=== PATIENT | male | born 1985 | race Caucasian/White ===

== ENCOUNTER → 2020-05-21 11:25 | Outpatient (BNVA) | payer OTHER, SELFPAY | PROVIDERS: Referring Provider Nurse Practitioner; Visit Provider Specialist | DX: S82.891A Other fracture of right lower leg, initial encounter for closed fracture (principal) | CPT/HCPCS: 73610 ==

== ENCOUNTER → 2020-06-25 09:29 | Outpatient (BNVA) | payer OTHER, SELFPAY | PROVIDERS: Visit Provider Specialist | DX: S82.831A Other fracture of upper and lower end of right fibula, initial encounter for closed fracture (principal); X58.XXXA Exposure to other specified factors, initial encounter | CPT/HCPCS: 73610 ==

== ENCOUNTER 2020-06-25 13:28 | Outpatient (CLI) | payer OTHER, SELFPAY | END 2020-06-25 13:29 | disposition home or self-care (01) | LOC: SPT 13:28 | PROVIDERS: Visit Provider Specialist | DX: Z47.89 Encounter for other orthopedic aftercare (principal); S82.831D Other fracture of upper and lower end of right fibula, subsequent encounter for closed fracture with routine healing; X58.XXXD Exposure to other specified factors, subsequent encounter | CPT/HCPCS: 97760; L1902 ==

== ENCOUNTER 2021-06-14 08:43 | Outpatient (CLI) | payer BC, SELFPAY ==
--- NOTE | 2021-06-14 | CT_ITS ---
WS: [id number] CT ABDOMEN AND PELVIS WITH CONTRAST HISTORY: GALLBLADDER POLYP TECHNIQUE: Imaging performed of the abdomen and pelvis with IV contrast. Single phase imaging of the abdomen. Coronal and sagittal reformats are submitted. All CT scans at [facility] use at [address] one of these dose optimization techniques: automated exposure control; mA and/or kV adjustment per patient size (includes targeted exams where dose is matched to clinical indication); or iterative re construction. IV CONTRAST: Omnipaque 300; 95 mL IV. Oral contrast: Yes. DLP: 1098.99 mGycm COMPARISON: 07/03/2019 Lower thorax: Lung bases are clear. Heart is normal size. No hiatal hernia. Liver/biliary system: Normal size with no intrahepatic dilatation. Gallbladder: Normal. No gallstones or wall thickening. No pericholecystic fluid. Pancreas: Normal size pancreas and pancreatic duct. No adjacent inflammation. Spleen: Normal size spleen. No mass or infarct. Adrenal glands: Normal. Right kidney: 8 mm exophytic low-attenuation nodule from the superior pole similar to the prior study of 07/03/2019. There is an additional smaller low-attenuation nodule from the posterior mid kidney wh ich is unchanged. Left kidney: Normal. Aorta: Normal. Lymphadenopathy: None. Free fluid: None. GI tract: Normal appendix. No obstruction or diverticular disease. Abdominal wall: Seen best on the sagittal reformats is a fat-containing umbilical hernia. Pelvis: No free fluid or adenopathy within the pelvis. Bones: Unremarkable. CT/CT abdomen pelvis w con* [id number] IMPRESSION: 1. No acute abdominal or pelvic abnormalities. 2. No renal obstruction. 3. Tiny umbilical hernia contains fat only. Hernia is best seen on the sagitta l reformats.
[2021-06-14] MEDS: iohexol 300 mg/mL 50 mL Btl PO (09:25)
[2021-06-14] MEDS: iohexol 300 mg/mL 100 mL Btl IV (10:30)
== END 2021-06-14 08:44 | disposition home or self-care (01) ==
PROVIDERS: PCP Family Medicine; Visit Provider Family Medicine
DX: K82.4 Cholesterolosis of gallbladder (principal); K42.9 Umbilical hernia without obstruction or gangrene
CPT/HCPCS: 74177; Q9967

== ENCOUNTER 2021-06-22 06:55 | Outpatient (CLI) | payer BC, SELFPAY ==
--- NOTE | 2021-06-22 07:07 | NM_ITS ---
WS: [id number] NUCLEAR MEDICINE HIDA SCAN WITH GALLBLADDER EJECTION FRACTION HISTORY: GALLBLADDER POLYP COMPARISON: Gallbladder ultrasound 05/13/2021 TECHNIQUE: The patient was intravenously injected with 4.4 mCi of TC99m Mebrofenin. Immediate imaging over the right upper quadrant was followed by 5 minute image and additional images for a total of 60 minutes. Normal uptake of radiotracer throughout the liver. Activity identified in the gallbladder at 10 minutes and well distended by 60 minutes. Activity in the proximal small bowel was seen by 30 minutes. Good washout of the radiotracer from the liver by 60 minutes. The patient then drank 8 ounces of Ensure Plus. Ejection fraction at 60 minutes was 86%. Normal GB ej ection fraction is 35-75%. Post fatty meal symptoms: None. NM/NM hepatobiliary w phar* [id number] IMPRESSION: 1. Normal HIDA scan. 2. Normal gallbladder ejection fraction.
== END 2021-06-22 06:56 | disposition home or self-care (01) ==
LOC: NM 06:57
PROVIDERS: PCP Family Medicine; Visit Provider Family Medicine
DX: K82.4 Cholesterolosis of gallbladder (principal)
CPT/HCPCS: 78227; A9537

== ENCOUNTER 2022-02-20 17:03 | Emergency (ER) | payer BC, SELFPAY ==
[2022-02-20] VITALS (9 sets, daily range): BP systolic 99–164; BP diastolic 62–109; PULSE 63–101; RESP 16–24; TEMP 37.1; O2SAT 93–98; BMI 38.0
--- NOTE | 2022-02-20 17:24 | ED_ITS ---
Documented by User: ALDO Pollock 02/20/22 21:23 HPI - Abdominal Pain General: Chief Complaint: Abdominal Pain Stated Complaint: Severe abd pain Time Seen by Provider: 02/20/22 17:07 Source: patient Mode of arrival: ambulatory Limitations: no limitations History of Present Illness: Patient is a 36-year-old male who presents to ED today along with his for complaints of severe abdominal pain and nausea and vomiting. states patient has had intermittent similar episodes over the past year or so. He has been worked up for gallbladder issues and reportedly had a normal gallbladder ultrasound as well as a HIDA scan. They think at some point he also had a CT scan which was normal. He states he has cut out all greasy and spicy foods and was started on a PPI. states this has seemed to cut down on the frequency of episodes and therefore he has delayed further treatment for evaluation. Patient states around 3 AM this morning he awoke with significant abdominal pains that have continued and worsened throughout the day. He has had a few episodes of nonbloody emesis. He has not noticed any changes in bowel movements today but states on previous episodes he often will get accompanying nonbloody diarrhea. No fevers. MD elicited complaint: abdominal pain and other (N/V) Onset (ago): hour(s) (12 hours ago) Pain Consistency: constant Location: Epigastric, Periumbilical, LUQ and RUQ Severity: severe Pain scale (0-10): 10 Radiation: none Migration to: no migration Exacerbating factors: eating Associated Symptoms: Reports diarrhea, nausea and vomiting; Denies chills, dysuria, fever(s), hematochezia, hematemesis and melena Review of Systems Const: Denies: fever(s), chills, body aches, fatigue or malaise Card: Denies: chest pain Resp: Denies: dyspnea GI: Reports: abdominal pain, nausea, vomiting and diarrhea; Denies: hematemesis, hematochezia or melena : Denies: flank pain, dysuria or genital pain Musc: Denies: neck pain, back pain, extremity pain or joint pain Skin/Breast: Denies: rash Neuro: Denies: headache(s), numbness in extremities, weakness in extremities or sensory changes PFS ED PFSH: Social History Smoking and tobacco status: never smoked Alcohol intake: never Physical Exam Const: COMMON NORMALS: patient oriented x3, no limitations and alert GENERAL APPEARANCE: cooperative and in distress (visibly uncomfortable secondary to pain) NUTRITIONAL APPEARANCE: obese ORIENTATION/CONSCIOUSNESS: Yes awake, Yes oriented to person, Yes oriented to place and Yes oriented to time HENMT: COMMON NORMALS: normocephalic and atraumatic HEAD & SCALP: normal to inspection, normocephalic and atraumatic Chest: COMMONS NORMALS: normal inspection of the chest Resp: COMMON NORMALS: normal respiratory effort and clear to auscultation bilaterally AUSCULTATION: clear to auscultation bilaterally Cardio: COMMON NORMALS: regular rate and regular rhythm RATE: regular rate RHYTHM: regular rhythm GI: COMMON NORMALS: Normal to inspection, nondistended, normoactive bowel sounds present, Soft to palpation and no masses INSPECTION: Yes normal to inspection PALPATION: Yes Soft to palpation and Yes Tenderness to palpation present (GI) (throughout upper abdomen; periumbilical) : COMMON NORMALS: Yes no CVA tenderness BLADDER/KIDNEY EXAM: Yes no CVA tenderness Back/Pelvis: COMMON NORMALS: no CVA tenderness, thoracic and lumbar spine normal to inspection, no thoracic nor lumbar tenderness and thoraco-lumbar ROM normal Extremity: COMMON NORMALS: normal to inspection GENERAL: Yes normal exam except as noted Neuro: COOPER COMA SCALE: document GCS findings Cooper coma scale eye opening: Spontaneous Cooper coma scale verbal response: Orientated Cooper coma scale motor response: Obey commands Clarks coma scale total score: 15 COMMON NORMALS: patient oriented x3, moves all extremities, no focal motor deficits and no sensory deficits noted SENSORIUM/ORIENTATION: Yes alert, Yes oriented to person, Yes oriented to place and Yes oriented to time Skin: COMMON NORMALS: no rashes or lesions noted GENERAL SKIN EXAM: no rashes or lesions noted Course Vital Signs: Vital signs: Vital Signs Temperature 98.7 F 02/20/22 17:08 Pulse Rate 98 02/20/22 21:00 Respiratory Rate 20 H 02/20/22 21:00 Blood Pressure 126/68 02/20/22 21:00 Pulse Oximetry 95 02/20/22 21:00 MDM - Abdominal Pain Medical Decision Making Patient's pain has improved with IV pain medications here. He is currently rating pain at 2/10. He has not had any episodes of vomiting. His blood work shows LFT elevations with a bilirubin of 3.0, AST/ALT at 274/255, and an alk phos of 149. He has a normal lipase. His CT scan is essentially normal. They did comment on the presence of cholelithiasis. There was no mention of ductal dilation. He had some submucosal fat deposition in his colon consistent with chronic inflammation. US of his gallbladder stated there were no gallstones, wall thickening or pericholecystic fluid. Biliary ducts were suboptimally visualized. Patient has a normal white count. He is not tachycardic or febrile. No hypotension. No clinical jaundice. I spoke to Dr. Velazco who recommended/agreed we have a CMP repeated in 24-48 hours and have patient follow up with general surgery as soon as possible for further evaluation. Patient and his were given strict return to ED precautions. Lab Data : 02/20/22 17:40 02/20/22 17:40 Labs/Radiology: Radiology Impressions Abdomen/Pelvis CT 02/20/22 17:24 IMPRESSION: 1. Limited noncontrast examination without CT evidence of acute intra-abdominal or pelvic pathology. 2. Additional findings, as above. Gallbladder Ultrasound 02/20/22 18:22 IMPRESSION: No acute sonographic findings. Laboratory Results WBC 6.2 10^3/uL (4.0-10.0) 02/20/22 17:40 RBC 5.74 10^6/uL (4.1-5.3) H 02/20/22 17:40 Hgb 17.2 g/dL (11.7-16.6) H 02/20/22 17:40 Hct 47.9 % (42.0-52.0) 02/20/22 17:40 MCV 83.4 fl (80-94) 02/20/22 17:40 MCH 30.0 pg (28.0-34.0) 02/20/22 17:40 MCHC 35.9 g/dL (30.0-36.0) 02/20/22 17:40 RDW 11.9 % (12.1-15.1) L 02/20/22 17:40 Plt Count 253 10^3/cmm (130-400) 02/20/22 17:40 MPV 9.2 fL (7.4-10.4) 02/20/22 17:40 Neut % (Auto) 84.4 % 02/20/22 17:40 Lymph % (Auto) 7.9 % 02/20/22 17:40 [place] % (Auto) 6.0 % 02/20/22 17:40 Eos % (Auto) 0.8 % 02/20/22 17:40 Baso % (Auto) 0.6 % 02/20/22 17:40 Neut # (Auto) 5.22 10^3/uL (1.8-7.7) 02/20/22 17:40 Lymph # (Auto) 0.5 10^3/uL (0.8-4.8) L 02/20/22 17:40 [place] # (Auto) 0.4 10^3/uL (0.2-0.9) 02/20/22 17:40 Eos # (Auto) 0.1 10^3/uL (0.0-0.8) 02/20/22 17:40 Baso # (Auto) 0.0 10^3/uL (0.0-0.1) 02/20/22 17:40 Nucleated RBC % (auto) 0 % 02/20/22 17:40 Nucleated RBCs # 0.0 /100WBC 02/20/22 17:40 Sodium 135 mmol/L (136-145) L 02/20/22 17:40 Potassium 4.2 mmol/L (3.5-5.1) 02/20/22 17:40 Chloride 97 mmol/L (98-107) L 02/20/22 17:40 Carbon Dioxide 23 mmol/L (22-29) 02/20/22 17:40 Anion Gap 19.2 (5-19) H 02/20/22 17:40 BUN 12 mg/dL (6-20) 02/20/22 17:40 Creatinine 0.9 mg/dL (0.7-1.2) 02/20/22 17:40 GFR Calculation 95.0 mL/min (90-130) 02/20/22 17:40 Glucose 148 mg/dL (65-115) H 02/20/22 17:40 Calculated Osmolality 283 mOsm/kg (285-295) L 02/20/22 17:40 Calcium 9.9 mg/dL (8.5-10.5) 02/20/22 17:40 Total Bilirubin 3.0 mg/dL (0.15-1.2) H 02/20/22 17:40 AST 274 U/L (0-40) H 02/20/22 17:40 ALT 255 U/L (0-41) H 02/20/22 17:40 Alkaline Phosphatase 149 IU/L (40-130) H 02/20/22 17:40 Total Protein 8.1 g/dL (6.6-8.7) 02/20/22 17:40 Albumin 4.8 g/dL (3.5-5.2) 02/20/22 17:40 Globulin 3.3 g/dL (1.3-4.6) 02/20/22 17:40 Lipase 40 U/L (13-60) 02/20/22 17:40 Urine Color Dark yellow (Yellow) 02/20/22 18:05 Urine Appearance Clear (CLEAR) 02/20/22 18:05 Urine pH 5 (5-7) 02/20/22 18:05 Ur Specific [place] 1.020 (1.005-1.030) 02/20/22 18:05 Urine Protein Trace (Negative) 02/20/22 18:05 Urine Glucose (UA) Norm (Normal) 02/20/22 18:05 Urine Ketones Negative (Negative) 02/20/22 18:05 Urine Blood 3+ (Negative) H 02/20/22 18:05 Urine Nitrate Negative (Negative) 02/20/22 18:05 Urine Bilirubin 2+ (Negative) H 02/20/22 18:05 Urine Urobilinogen 8 mg/dL (Negative) H 02/20/22 18:05 Ur Leukocyte Esterase Negative (Negative) 02/20/22 18:05 Urine RBC 50-80 /hpf (0-2) H 02/20/22 18:05 Urine WBC 0-4 /hpf (0-5) H 02/20/22 18:05 Ur Squamous Epith Cells 0-4 /hpf (0-5) H 02/20/22 18:05 Amorphous Sediment Not Reportable 02/20/22 18:05 Urine Bacteria 2+ /hpf (NONE) H 02/20/22 18:05 Urine Mucus 4+ /hpf 02/20/22 18:05 Discharge Plan Discharge Patient Disposition: Home Clinical Impression: Elevated LFTs, Biliary colic Condition: Stable Prescriptions: New hydrocodone-acetaminophen 5-325 mg tablet 1 tab PO .q4-6 PRN (Reason: pain) Qty: 20 0RF ondansetron 4 mg tablet,disintegrating 4 mg PO Q8H PRN (Reason: nausea and vomiting) Qty: 14 0RF No Action (DME) LACE UP ANKLE BRACE See Rx Instructions .Route .MEDSUPPLY Qty: 1 0RF Rx Instructions: As directed Discharge Orders: Discharge ED (Routine); Ordered 02/20/22 Ordered By: Mildred Delong Referrals: Melvin Abraham MD [Primary Care Provider] - Patient Instructions: Abdominal Pain (ED) Activity Restrictions/Additional Instructions: As we discussed I would like to have patient have a repeat CMP performed by Dr. Abraham in the next 24 to 48 hours. Have placed a referral with case management to get him set up with general surgery as soon as possible. As we discussed he needs to return to the emergency department immediately for worsening or uncontrollable abdominal pain, yellowing to the skin or eyes, repetitive episodes of vomiting, fevers, generally feeling unwell, or any other concerns you may have. I hope he begins to feel better soon. Coding Level of Care Code ED Marketing Forecaster for Chg Fwd Exam Comprehensive Documented by User: Dereck Velazco DO 02/21/22 00:16 HPI - Abdominal Pain General: Chief Complaint: Abdominal Pain Stated Complaint: Severe abd pain Time Seen by Provider: 02/20/22 17:07 PFSH ED PFSH: Social History Smoking and tobacco status: never smoked Alcohol intake: never Physical Exam Neuro: COOPER COMA SCALE: document GCS findings Cooper coma scale total score: 15 Course Vital Signs: Vital signs: Vital Signs Temperature 98.7 F 02/20/22 17:08 Pulse Rate 98 02/20/22 21:00 Respiratory Rate 20 H 02/20/22 21:00 Blood Pressure 126/68 02/20/22 21:00 Pulse Oximetry 95 02/20/22 21:00 MDM - Abdominal Pain Medical Decision Making Patient's pain has improved with IV pain medications here. He is currently rating pain at 2/10. He has not had any episodes of vomiting. His blood work shows LFT elevations with a bilirubin of 3.0, AST/ALT at 274/255, and an alk phos of 149. He has a normal lipase. His CT scan is essentially normal. They did comment on the presence of cholelithiasis. There was no mention of ductal dilation. He had some submucosal fat deposition in his colon consistent with chronic inflammation. US of his gallbladder stated there were no gallstones, wall thickening or pericholecystic fluid. Biliary ducts were suboptimally vi sualized. Patient has a normal white count. He is not tachycardic or febrile. No hypotension. No clinical jaundice. I spoke to Dr. Velazco who recommended/agreed we have a CMP repeated in 24-48 hours and have patient follow up with general surgery as soon as possible for further evaluation. Patient and his were given strict return to ED precautions. This patient was originally seen by Karrie PaytonDelong?CÉSAR Sharma.? I agree with her history, evaluation, and treatment. Lab Data : 02/20/22 17:40 02/20/22 17:40 Labs/Radiology: Radiology Impressions Abdomen/Pelvis CT 02/20/22 17:24 IMPRESSION: 1. Limited noncontrast examination without CT evidence of acute intra-abdominal or pelvic pathology. 2. Additional findings, as above. Gallbladder Ultrasound 02/20/22 18:22
--- NOTE | 2022-02-20 17:24 | CTR_ITS ---
PROCEDURE INFORMATION: Exam: CT Abdomen And Pelvis Without Contrast Exam date and time: 02/20/2022 5:46 PM Age: 36 years old Clinical indication: Abdominal pain; Epigastric; Additional info: Severe mid abdominal pains; N/v TECHNIQUE: Imaging protocol: Computed tomography of the abdomen and pelvis without contrast. Axial, coronal and sagittal reformatted images were created and reviewed. Radiation optimization: All CT scans at this facility use at least one of these dose optimization techniques: automated exposure control; mA and/or kV adjustment per patient size (includes targeted exams where dose is matched to clinical indication); or iterative reconstruction. COMPARISON: CT abdomen pelvis w con* [id number] 06/14/2021 10:19 AM RADIATION DOSE METRICS: Total DLP (mGy-cm): 1892.9 FINDINGS: Liver: Unremarkable. Gallbladder and bile ducts: Cholelithiasis. Pancreas: Unremarkable. Spleen: Mild splenomegaly. Adrenal glands: Normal. No mass. Kidneys and ureters: 1 cm simple right renal cyst (no follow-up is indicated based on the imaging appearance). No radiodense calculi. No hydronephrosis. Stomach and bowel: Submucosal fat deposition in the colon, consistent with chronic inflammation. No bowel wall thickening. No obstruction. No pneumatosis. Appendix: Normal. Intraperitoneal space: No free fluid. No organized fluid collection. No free air. Vasculature: Unremarkable. No aneurysm. Lymph nodes: No pathologically enlarged lymph nodes. Urinary bladder: Unremarkable as visualized. Reproductive: Unremarkable. Bones/joints: No acute osseous abnormality. Mild degenerative changes. Soft tissues: Small, fat containing umbilical hernia. CT/CT abdomen pelvis con [id number] IMPRESSION: 1. Limited noncontrast examination without CT evidence of acute intra-abdominal or pelvic pathology. 2. Additional findings, as above.
[2022-02-20] MEDS: ondansetron 2 mg/ML SDV 2 mL 4 MG IVP (17:30)
[2022-02-20] MEDS: morphine 4 mg/mL SDV 1 mL IVP (17:30)
[2022-02-20] MEDS: sodium chloride 0.9% 1,000 ML 999 ML IV (17:31)
[2022-02-20 17:50] LABS: Basophils % 0.6 %; Eosinophils # 0.1 10^3/uL (0.0-0.8); Eosinophils % 0.8 %; Hematocrit 47.9 % (42.0-52.0); Hemoglobin 17.2 g/dL (11.7-16.6); Lymphocytes # 0.5 10^3/uL (0.8-4.8); Lymphocytes % 7.9 %; Mean Corpuscular HGB Conc 35.9 g/dL (30.0-36.0); Mean Corpuscular Volume 83.4 fl (80-94); Mean Platelet Volume 9.2 fL (7.4-10.4); Monocytes # 0.4 10^3/uL (0.2-0.9); Neutrophils # 5.22 10^3/uL (1.8-7.7); Neutrophils % 84.4 %; Nucleated Red Blood Cells % 0 %; Platelet Count 253 10^3/cmm (130-400); Red Blood Count 5.74 10^6/uL (4.1-5.3); Red Cell Distribution Width 11.9 % (12.1-15.1); White Blood Count 6.2 10^3/uL (4.0-10.0)
[2022-02-20 18:11] LABS: Alanine Aminotransferase 255 U/L (0-41); Albumin Level 4.8 g/dL (3.5-5.2); Alkaline Phosphatase 149 IU/L (40-130); Anion Gap 19.2 (5-19); Aspartate Amino Transferase 274 U/L (0-40); Blood Urea Nitrogen 12 mg/dL (6-20); Calcium 9.9 mg/dL (8.5-10.5); Carbon Dioxide 23 mmol/L (22-29); Chloride 97 mmol/L (98-107); Globulin 3.3 g/dL (1.3-4.6); Glucose 148 mg/dL (65-115); Lipase 40 U/L (13-60); Osmolality Calculated 283 mOsm/kg (285-295); Potassium 4.2 mmol/L (3.5-5.1); Sodium 135 mmol/L (136-145); Total Protein 8.1 g/dL (6.6-8.7)
[2022-02-20] MEDS: HYDROmorphone 1 mg/mL INJ 1 mL 0.5 MG IVP (18:17)
[2022-02-20 18:18] LABS: Add Urine Microscopic? YES; Bilirubin Urine 2+ (Negative); Blood Urine 3+ (Negative); Glucose Urine UA Norm (Normal); Ketones Urine Negative (Negative); Leukocyte Esterase Urine Negative (Negative); Nitrate Urine Negative (Negative); Protein Urine Trace (Negative); Urine Appearance Clear (CLEAR); Urine Color Dark Yellow (Yellow); Urobilinogen Urine 8 mg/dL (Negative); pH Urine 5 (5-7)
[2022-02-20 18:19] LABS: Add Urine Culture? Yes; Bacteria Urine 2+ /hpf; Mucus Urine 4+ /hpf; RBC Urine 50-80 /hpf (0-2); Squamous Epithelial Cell Urine 0-4 /hpf (0-5); WBC Urine 0-4 /hpf (0-5)
--- NOTE | 2022-02-20 18:22 | USR_ITS ---
PROCEDURE INFORMATION: Exam: US Abdomen, Limited; Right Upper Quadrant Exam date and time: 02/20/2022 7:15 PM Age: 36 years old Clinical indication: Abdominal pain; Additional info: Pain, elevated lfts TECHNIQUE: Imaging protocol: US abdomen. Real time ultrasound with image documentation. Limited exam focused on the right upper quadrant. COMPARISON: US gall bladder [id number] 05/13/2021 8:48 AM FINDINGS: Liver: Unremarkable. Gallbladder: No gallstones. No gallbladder wall thickening or pericholecystic fluid. Negative sonographic Flanagan's sign, as per the performing remote control assembler. Biliary ducts: Suboptimally visualized. Pancreas: Suboptimally visualized. Right kidney: No mass. No definite stones. No hydronephrosis. US/US gall bladder [id number] IMPRESSION: No acute sonographic findings.
[2022-02-20] MEDS: ondansetron 4 MG Tablet PO (21:05)
[2022-02-20] MEDS: HYDROcodone-acetaminophen 5-325 mg Tablet 2 TAB PO (21:05)
--- NOTE | 2022-02-21 09:27 | DCPLANNER ---
Addendum entered by Mari Kauffman 03/02/22 14:30: clinical assessment manager had message from general surgery that patient is currently in hospital in [place]. Would like to wait and see if they take it out up there. Original Note: clinical assessment manager had message to schedule a follow up appointment for patient with general surgery. clinical assessment manager sent patients information to the front office staff at general surgery. Patients information will be printed and reviewed. Clinic will call patient with appointment information.
== END 2022-02-20 21:16 | disposition home or self-care (01) ==
PROVIDERS: Emergency Provider Physician Assistant; PCP Family Medicine
DX: K80.50 Calculus of bile duct without cholangitis or cholecystitis without obstruction (principal); R94.5 Abnormal results of liver function studies
CPT/HCPCS: 74176; 76705; 80053; 81001; 83690; 85025; 87086; 96374; 96375; 99284; J1170; J2270; J2405; J7030; Q0162

== ENCOUNTER 2022-02-21 01:34 | Emergency (ER) | payer BC, SELFPAY ==
[2022-02-21] VITALS (11 sets, daily range): BP systolic 114–149; BP diastolic 71–92; PULSE 91–125; RESP 18–26; TEMP 37.2; O2SAT 92–95; BMI 38.4
--- NOTE | 2022-02-21 01:53 | MRR_ITS ---
PROCEDURE INFORMATION: Exam: MR Abdomen Without Contrast Exam date and time: 02/21/2022 3:25 AM Age: 36 years old Clinical indication: Abdominal pain; Epigastric; Additional info: Ruq pain hyperbilirubinemia TECHNIQUE: Imaging protocol: MR of the abdomen without contrast. COMPARISON: CT abdomen pelvis con [id number] 02/20/2022 5:46 PM FINDINGS: Liver: No mass. Gallbladder and bile ducts: There is some intermediate signal material present in the gallbladder neck that may represent gallbladder sludge. Common bile duct measures approximately 5 mm in its midportion and appears to smoothly taper within the ampulla seen on 3D MRCP images. There is some subtle intermediate signal within the distal common bile duct near the ampulla that may represent flow artifact. However, debris or sludge cannot be excluded. Pancreas: Unremarkable. No ductal dilation. Spleen: Unremarkable. No splenomegaly. Adrenal glands: Unremarkable. No mass. Kidneys and ureters: A simple cyst is seen in the upper pole of the right kidney medially measuring 11 mm. Stomach and bowel: Visualized stomach and intestines are unremarkable. Intraperitoneal space: No free fluid. Vasculature: No abdominal aortic aneurysm. Bones/joints: Unremarkable. Soft tissues: Unremarkable. MR/MR MRCP [id number] IMPRESSION: 1. There is some intraluminal intermediate signal seen within the gallbladder neck that could represent gallbladder sludge. 2. Subtle intermediate signal is seen in the distal common bile duct near the ampulla possibly representing flow artifact although debris or sludge cannot be excluded. COMMENTS: Consistent with the [employer]'s Incidental Findings Committee white paper (J Am Lizzy Radiol 2018): Any incidental renal lesion less than 1 cm or classified as too small to characterize, or any incidental cystic renal lesion characterized as simple-appearing, is likely benign. No follow-up imaging is recommended for these lesions per consensus recommendations based on imaging criteria.
[2022-02-21 02:16] LABS: Basophils % 0.3 %; Eosinophils % 0.4 %; Hematocrit 45.2 % (42.0-52.0); Hemoglobin 15.5 g/dL (11.7-16.6); Lymphocytes # 0.3 10^3/uL (0.8-4.8); Lymphocytes % 2.9 %; Mean Corpuscular HGB Conc 34.3 g/dL (30.0-36.0); Mean Corpuscular Hemoglobin 29.2 pg (28.0-34.0); Mean Corpuscular Volume 85.1 fl (80-94); Monocytes # 0.6 10^3/uL (0.2-0.9); Monocytes % 5.9 %; Neutrophils # 8.55 10^3/uL (1.8-7.7); Neutrophils % 89.6 %; Nucleated Red Blood Cells % 0 %; Platelet Count 238 10^3/cmm (130-400); Red Blood Count 5.31 10^6/uL (4.1-5.3); Red Cell Distribution Width 11.9 % (12.1-15.1); White Blood Count 9.6 10^3/uL (4.0-10.0)
[2022-02-21] MEDS: sodium chloride 0.9% 1,000 ML 999 ML IV (02:16)
[2022-02-21] MEDS: ondansetron 2 mg/ML SDV 2 mL 4 MG IVP (02:18)
[2022-02-21 02:37] LABS: Alanine Aminotransferase 329 U/L (0-41); Albumin Level 4.5 g/dL (3.5-5.2); Alkaline Phosphatase 152 IU/L (40-130); Aspartate Amino Transferase 264 U/L (0-40); Blood Urea Nitrogen 12 mg/dL (6-20); C Reactive Protein 53.4 mg/L (0.0-4.9); Calcium 9.3 mg/dL (8.5-10.5); Carbon Dioxide 22 mmol/L (22-29); Chloride 95 mmol/L (98-107); Globulin 3.2 g/dL (1.3-4.6); Glomerular Filtration Rate 84.1 mL/min (90-130); Glucose 178 mg/dL (65-115); Lipase 42 U/L (13-60); Osmolality Calculated 276 mOsm/kg (285-295); Sodium 131 mmol/L (136-145); Total Protein 7.7 g/dL (6.6-8.7)
[2022-02-21 02:39] LABS: Anion Gap 18.1 (5-19); Potassium 4.1 mmol/L (3.5-5.1)
[2022-02-21 02:55] LABS: Slide Review Slide Review Perform
--- NOTE | 2022-02-21 03:15 | W.ED.FEVER ---
HPI - Fever General: Chief Complaint: Fever Stated Complaint: fever/ abd pain Time Seen by Provider: 02/21/22 01:48 Source: patient History of Present Illness: 36-year-old male who was seen earlier in the evening for epigastric pain. He was found to have elevated liver enzymes, with a mildly elevated bilirubin. Pain was controlled while here. Clinically he looked good, and was allowed home. After he got home, he began to chill significantly. Temperature was taken which was above 102 at home. He was told to come back to the emergency room for further evaluation. MD elicited complaint: fever Pertinent past history: other Onset (ago): hour(s) Context: other Exacerbating factors: nothing Relieving factors: acetaminophen Associated symptoms: Reports abdominal pain, flank pain, chills, diarrhea and vomiting; Deny chest pain, confusion, cough, headache(s) or short of breath Review of Systems Const: Reports: chills Card: Denies: chest pain Resp: Denies: dyspnea GI: Reports: abdominal pain, vomiting and diarrhea; Denies: hematochezia : Reports: flank pain Neuro: Denies: headache(s) or confusion PFSH ED PFSH: Social History Smoking and tobacco status: never smoked Alcohol intake: never Physical Exam Const: GENERAL APPEARANCE: cooperative and ill appearing HENMT: COMMON NORMALS: normocephalic, atraumatic and Normal external nose present HEAD & SCALP: normocephalic and atraumatic FACE & SINUS: normal facial exam and face symmetric NOSE: Normal external nose present Eye: COMMON NORMALS: Equal, round and reactive pupils present and EOMs intact bilaterally SCLERA: sclerae normal PUPIL: Yes Equal, round and reactive pupils present Neck/C-Spine: COMMON NORMALS: full ROM Chest: CHEST: Yes Symmetrical chest wall rise Resp: COMMON NORMALS: normal respiratory effort, No use of accessory muscles and clear to auscultation bilaterally AUSCULTATION: clear to auscultation bilaterally Cardio: COMMON NORMALS: regular rate and regular rhythm RATE: regular rate RHYTHM: regular rhythm GI: INSPECTION: Yes abdominal distension (Mild) PALPATION: Yes Firmness to palpation present (GI) and Yes Tenderness to palpation present (GI) (Epigastric) : COMMON NORMALS: Yes no CVA tenderness BLADDER/KIDNEY EXAM: Yes no CVA tenderness Back/Pelvis: COMMON NORMALS: no CVA tenderness Extremity: COMMON NORMALS: no pedal edema Neuro: COOPER COMA SCALE: document GCS findings [place] coma scale eye opening: Spontaneous Cooper coma scale verbal response: Orientated Cooper coma scale motor response: Obey commands Cooper coma scale total score: 15 Skin: GENERAL SKIN EXAM: other (Diaphoretic) Course Consultations: Consultation #1: radha Time: 04:45 Vital Signs: Vital signs: Vital Signs Temperature 98.9 F 02/21/22 01:45 Pulse Rate 123 H 02/21/22 05:30 Respiratory Rate 18 02/21/22 05:30 Blood Pressure 148/92 02/21/22 05:30 Pulse Oximetry 93 02/21/22 05:30 MDM - Fever Medical Decision Making 36-year-old male with a fever at home, epigastric and right upper quadrant discomfort, elevated liver enzymes with a bilirubin now 5, was [address] and ultrasound last night were not remarkable. MRCP this morning shows subtle signal within the common bile duct distally near the ampulla possibly representing some sludge. This gentleman has no other reason to have a fever, elevated liver enzymes, and right upper quadrant pain. He is treated with fluids, antibiotics, antiemetics, etc. Spoke with surgery, recommendations are ERCP given his change both clinically and laboratory wright. Call out to [facility]. Dx. Cholangitis [phone]: [facility] has no med surg beds. Spoke with [facility], they will call back. [phone]. Dr. Hu at [facility] accepts the patient. Pending a bed number there at this point. Will go when bed available. Current vitals: 139/81, Sinus 100, Sats 94% RA. Lab Data : 02/21/22 02:04 02/21/22 02:04 Radiology Impressions Cholangiopancreatography MRI 02/21/22 01:53 IMPRESSION: 1. There is some intraluminal intermediate signal seen within the gallbladder neck that could represent gallbladder sludge. 2. Subtle intermediate signal is seen in the distal common bile duct near the ampulla possibly representing flow artifact although debris or sludge cannot be excluded. COMMENTS: Consistent with the [employer]'s Incidental Findings Committee white paper (J Am Lizzy Radiol 2018): Any incidental renal lesion less than 1 cm or classified as too small to characterize, or any incidental cystic renal lesion characterized as simple-appearing, is likely benign. No follow-up imaging is recommended for these lesions per consensus recommendations based on imaging criteria. Laboratory Results WBC 9.6 10^3/uL (4.0-10.0) 02/21/22 02:04 RBC 5.31 10^6/uL (4.1-5.3) H 02/21/22 02:04 Hgb 15.5 g/dL (11.7-16.6) 02/21/22 02:04 Hct 45.2 % (42.0-52.0) 02/21/22 02:04 MCV 85.1 fl (80-94) 02/21/22 02:04 MCH 29.2 pg (28.0-34.0) 02/21/22 02:04 MCHC 34.3 g/dL (30.0-36.0) 02/21/22 02:04 RDW 11.9 % (12.1-15.1) L 02/21/22 02:04 Plt Count 238 10^3/cmm (130-400) 02/21/22 02:04 MPV 9.0 fL (7.4-10.4) 02/21/22 02:04 Neut % (Auto) 89.6 % 02/21/22 02:04 Lymph % (Auto) 2.9 % 02/21/22 02:04 [place] % (Auto) 5.9 % 02/21/22 02:04 Eos % (Auto) 0.4 % 02/21/22 02:04 Baso % (Auto) 0.3 % 02/21/22 02:04 Neut # (Auto) 8.55 10^3/uL (1.8-7.7) H 02/21/22 02:04 Lymph # (Auto) 0.3 10^3/uL (0.8-4.8) L 02/21/22 02:04 [place] # (Auto) 0.6 10^3/uL (0.2-0.9) 02/21/22 02:04 Eos # (Auto) 0.0 10^3/uL (0.0-0.8) 02/21/22 02:04 Baso # (Auto) 0.0 10^3/uL (0.0-0.1) 02/21/22 02:04 Nucleated RBC % (auto) 0 % 02/21/22 02:04 Nucleated RBCs # 0.0 /100WBC 02/21/22 02:04 Sodium 131 mmol/L (136-145) L 02/21/22 02:04 Potassium 4.1 mmol/L (3.5-5.1) 02/21/22 02:04 Chloride 95 mmol/L (98-107) L 02/21/22 02:04 Carbon Dioxide 22 mmol/L (22-29) 02/21/22 02:04 Anion Gap 18.1 (5-19) 02/21/22 02:04 BUN 12 mg/dL (6-20) 02/21/22 02:04 Creatinine 1.0 mg/dL (0.7-1.2) 02/21/22 02:04 GFR Calculation 84.1 mL/min (90-130) L 02/21/22 02:04 Glucose 178 mg/dL (65-115) H 02/21/22 02:04 Calculated Osmolality 276 mOsm/kg (285-295) L 02/21/22 02:04 Lactate 2.0 mmol/L (0.5-2.2) 02/21/22 02:15 Calcium 9.3 mg/dL (8.5-10.5) 02/21/22 02:04 Total Bilirubin 5.0 mg/dL (0.15-1.2) H 02/21/22 02:04 AST 264 U/L (0-40) H 02/21/22 02:04 ALT 329 U/L (0-41) H 02/21/22 02:04 Alkaline Phosphatase 152 IU/L (40-130) H 02/21/22 02:04 C-Reactive Protein 53.4 mg/L (0.0-4.9) H 02/21/22 02:04 Total Protein 7.7 g/dL (6.6-8.7) 02/21/22 02:04 Albumin 4.5 g/dL (3.5-5.2) 02/21/22 02:04 Globulin 3.2 g/dL (1.3-4.6) 02/21/22 02:04 Lipase 42 U/L (13-60) 02/21/22 02:04 Urine Color Yellow (Yellow) 02/21/22 05:43 Urine Appearance Clear (CLEAR) 02/21/22 05:43 Urine pH 5 (5-7) 02/21/22 05:43 Ur Specific Solomon 1.005 (1.005-1.030) 02/21/22 05:43 Urine Protein Neg (Negative) 02/21/22 05:43 Urine Glucose (UA) Norm (Normal) 02/21/22 05:43 Urine Ketones Negative (Negative) 02/21/22 05:43 Urine Blood 2+ (Negative) H 02/21/22 05:43 Urine Nitrate Negative (Negative) 02/21/22 05:43 Urine Bilirubin 1+ (Negative) H 02/21/22 05:43 Urine Urobilinogen 1 mg/dL (Negative) H 02/21/22 05:43 Ur Leukocyte Esterase Negative (Negative) 02/21/22 05:43 Discharge Plan Discharge Patient Disposition: Xfer Short-Term Hosp Clinical Impression: Acute cholangitis Condition: Fair Referrals: Melvin Abraham MD [Primary Care Provider] - Coding Level of Care Code ED [employer] Specialist for Chg Fwd Exam Comprehensive
[2022-02-21] MEDS: metoclopramide 5 mg/mL SDV 2 mL 10 MG IVP (04:33)
[2022-02-21] MEDS: sodium chloride 0.9% 1,000 ML 125 ML IV ×2 (04:33→06:59)
[2022-02-21] MEDS: famotidine 20 mg/2 mL INJ 40 MG IVP (04:34)
--- NOTE | 2022-02-21 05:01 | PC.NURSE ---
Pt up to restroom, vomiting and passing stool.
[2022-02-21] MEDS: morphine 4 mg/mL SDV 1 mL IVP (05:21)
[2022-02-21] MEDS: haloperidol inj 5 mg/mL INJ 1 mL 3 MG IVP (05:31)
[2022-02-21] MEDS: metroNIDAZOLE IV 500 MG/100 ML PREMIX 100 MG IV (05:34)
[2022-02-21 05:47] LABS: Charge for UA Resulting for Rev
[2022-02-21 05:51] LABS: Bilirubin Urine 1+ (Negative); Blood Urine 2+ (Negative); Glucose Urine UA Norm (Normal); Ketones Urine Negative (Negative); Leukocyte Esterase Urine Negative (Negative); Nitrate Urine Negative (Negative); Protein Urine Neg (Negative); Specific Gravity, Urine 1.005 (1.005-1.030); Urine Appearance Clear (CLEAR); Urine Color Yellow (Yellow); Urobilinogen Urine 1 mg/dL (Negative); pH Urine 5 (5-7)
[2022-02-21 05:57] LABS: Add Urine Microscopic? YES
[2022-02-21] MEDS: ciprofloxacin 400 MG/200 ML PREMIX 200 MG IV (06:52)
[2022-02-21 07:33] LABS: Adenovirus Not Detected (NOT DETECT); Chlamydia Pneumoniae Not Detected (NOT DETECT); Coronavirus 229E,HKU1,NL63,OC4 Detected (NOT DETECT); Human Metapneumovirus Not Detected (NOT DETECT); Human Rhinovirus/Enterovirus Not Detected (NOT DETECT); Influenza A Not Detected (NOT DETECT); Influenza A H1 Not Detected (NOT DETECT); Influenza A H1-2009 Not Detected (NOT DETECT); Influenza A H3 Not Detected (NOT DETECT); Influenza B Not Detected (NOT DETECT); Mycoplasma Pneumoniae Not Detected (NOT DETECT); Parainfluenza Virus Type 1 Not Detected (NOT DETECT); Parainfluenza Virus Type 2 Not Detected (NOT DETECT); Parainfluenza Virus Type 3 Not Detected (NOT DETECT); Parainfluenza Virus Type 4 Not Detected (NOT DETECT); Respiratory Syncytial Virus A Not Detected (NOT DETECT); Respiratory Syncytial Virus B Not Detected (NOT DETECT); SARS-COV-2 Not Detected (NOT DETECT)
== END 2022-02-21 07:10 | disposition short-term general hospital (02) ==
PROVIDERS: Emergency Provider Emergency Medicine; PCP Family Medicine
DX: K83.09 Other cholangitis (principal)
CPT/HCPCS: 74181; 80053; 81003; 83605; 83690; 85025; 86140; 87635; 96365; 96367; 99285; J0744; J1630; J2270; J2405; J2765; J3490; J7030; S0030

== ENCOUNTER 2022-03-03 06:47 | Day surgery (SDC) | payer BC, SELFPAY ==
[2022-03-02 11:44] VITALS: BMI 37.8
[2022-03-03] VITALS (9 sets, daily range): BP systolic 110–137; BP diastolic 62–101; PULSE 56–77; RESP 14–18; TEMP 36.1–36.7; O2SAT 91–98
--- NOTE | 2022-03-03 07:59 | W.PM.OPSUD ---
Surgery/Procedure H&P Update DATE OF PROCEDURE: March 03, 2022 DATE H&P PERFORMED: 03/01/22 H&P UPDATE INFORMATION: No changes to prior documentation PREOP DIAGNOSIS: Chronic cholecystitis, gallbladder sludge, status post ERCP. PLANNED PROCEDURE: Operation Date: 03/03/22 08:20 Proposed Procedures p Laparoscopic Cholecystectomy 63557,k81.1,k82.8,z98.890(Not Applicable) - Po Lopez MD
[2022-03-03] MEDS: sodium chloride 0.9% 1,000 ML 30 ML IV (08:07)
--- NOTE | 2022-03-03 08:08 | ANES.PREANE2 ---
Pre-Anesthetic Assessment Height/Weight: Height 1.75 m Weight 116.12 kg Temp Pulse Resp BP Pulse Ox 98.0 F 77 16 124/87 98 03/03/22 07:31 03/03/22 07:31 03/03/22 07:31 03/03/22 07:31 03/03/22 07:31 Preop Diagnosis: Chronic cholecystitis, gallbladder sludge, status post ERCP. Operation Date: 03/03/22 08:20 Proposed Procedures p Laparoscopic Cholecystectomy 37725,k81.1,k82.8,z98.890(Not Applicable) - Po Lopez MD Familial anesthetic complications: None Was Beta Gabriella taken within 24 hours: Yes Was Clonidine taken within 24 hours: N/A Last intake: Intake Last Liquid Date 03/02/22 Last Liquid Time 23:00 Last Solid Date 03/02/22 Last Solid Time 22:30 Social No alcohol and No tobacco Exam alert, oriented x 3, clear to auscultation bilaterally and regular rate & rhythm Airway Submandibular: within normal limits Cervical ROM: within normal limits Mallampati: Class II Dentition: chipped (chipped molar ) and partials History/ROS No significant complaints Pulmonary None reported CV/HEM Hypertension and None reported None reported Hepatic None reported GI Gastroesophageal Reflux Disease cholelithiasis w/ cholangitis s/p ERCP Metabolic None reported Musc/skel Osteoarthritis/DJD gout Neuropsych Anxiety Anesthetic Plan ASA status: 2 Anesthesia: Anesthesia Evaluation and General Other: We discussed risk and benefits of general anesthesia including PONV, sore throat (sometimes severe), corneal abrasion, positioning and peripheral nerve injuries, life threatening allergic reaction, post operative ICU admission requiring prolonged intubation, stroke, heart attack, , and rare incidences of recall. Patient consents to proceed with general anesthesia. Risk of > 500 ml blood loss (7ml/kg in children): No Medications/Allergies Home Medications Medication Instructions Recorded Confirmed Last Taken Type LACE UP ANKLE BRACE #1 ea NS 06/25/20 06/25/20 Unknown Rx esomeprazole magnesium 20 mg 20 mg PO PRN 03/02/22 03/03/22 03/03/22 06:00 History capsule,delayed release escitalopram oxalate 10 mg tablet 10 mg PO DAILY 03/03/22 03/03/22 03/02/22 History (Lexapro) hydrocodone 5 mg-acetaminophen 325 1 - 2 tab PO Q5H PRN #30 tab 03/03/22 Unknown Rx mg tablet propranolol 20 mg tablet 20 mg PO DAILY 03/03/22 03/03/22 03/03/22 06:00 History Allergies Allergy/AdvReac Type Severity Reaction Status Date / Time Penicillins Allergy HIVES Verified 02/20/22 17:07 Sulfa (Sulfonamide Allergy RASH Verified 02/20/22 17:07 Antibiotics) Current Medications Generic Name Dose Route Start Last Admin Trade Name Freq PRN Reason Stop Dose Admin Sodium Chloride 1,000 mls @ 30 mls/hr 03/03/22 07:15 03/03/22 08:07 Sodium Chloride 0.9% IV 03/04/22 07:14 30 mls/hr .Q24H SARINA Administration PFSH Anesthesia Social History Smoking and tobacco status: never smoked Alcohol intake: never Data Anesthesia Cardiac Studies: No Data to Display
[2022-03-03 08:28] LABS: Alanine Aminotransferase 68 U/L (0-41); Albumin Level 4.5 g/dL (3.5-5.2); Alkaline Phosphatase 97 IU/L (40-130); Aspartate Amino Transferase 28 U/L (0-40); Globulin 2.9 g/dL (1.3-4.6); Total Bilirubin 0.9 mg/dL (0.15-1.2); Total Protein 7.4 g/dL (6.6-8.7)
--- NOTE | 2022-03-03 09:16 | PM.OP ---
Operative Report Date of procedure: March 03, 2022 Pre-op diagnosis: Preop Diagnosis Chronic cholecystitis, gallbladder sludge, status post ERCP. Post-op diagnosis: Same. Procedure done: Laparoscopic cholecystectomy. Specimens removed/disposition: Gallbladder. Surgeon: General Surgery Po Lopez MD Estimated blood loss: 5 mL. Complications: None. Procedure: The patient was brought to the Operating Room and was placed in a supine position on the Operating Room table. General endotracheal anesthesia was induced. The abdomen was prepped and draped in a sterile fashion. A small vertical incision was carried out in the superior aspect of the umbilicus. Blunt dissection was carried out down to the fascia, where the patient's known small, fat-containing umbilical hernia was found. The fascial defect was simply enlarged superiorly for short distance. A stay suture of 0 Vicryl was placed on either side of the midline. The underlying peritoneum was opened bluntly and the Malena port was placed directly into the peritoneal cavity and was held in place with the inflatable balloon. The peritoneal cavity was insufflated with carbon dioxide. The laparoscope was used to inspect the abdominal cavity. No gross abnormalities were initially noted. A 5 millimeter port was placed in the epigastrium under direct vision. Two 5-millimeter ports were placed on the right side of the abdomen under direct vision. The gallbladder was grasped and was elevated. The patient had some light but chronic adhesions along the fundus of the gallbladder down to and involving the infundibular region. These were taken down using blunt dissection and a minimum of cautery to maintain hemostasis. Blunt dissection and hydrodissection were carried out in the infundibular region of the gallbladder and the cystic duct and cystic artery were identified. The gallbladder was partially removed from the liver bed using cautery and the spatula to confirm the anatomy before the structures were clipped and divided. The gallbladder was then removed from the liver bed using cautery and the spatula. After the gallbladder had been removed from the liver bed, the laparoscope was moved to the epigastric port and the gallbladder was removed from the peritoneal cavity through the umbilical port site. The stay sutures of Vicryl were tied to each other at the umbilicus. An additional [id number] suture of 0 Vicryl was placed, closing the defect so that it was airtight. The perihepatic spaces were irrigated with saline and the liver bed was reinspected. No ongoing problems were seen. The remaining ports were removed from the abdominal wall and the pneumoperitoneum was evacuated. All skin incisions were closed using inverted interrupted sutures of 4-0 Vicryl. Benzoin and Steri-Strips were placed over the incisions and Band-Aids followed. The patient was taken to the Recovery Area in stable condition postoperatively.
[2022-03-03] MEDS: ondansetron 2 mg/ML SDV 2 mL 4 MG IVP (09:43)
[2022-03-03] MEDS: HYDROcodone-acetaminophen 5-325 mg Tablet 1 TAB PO (11:03)
--- NOTE | 2022-03-03 13:53 | ANE.PACU2 ---
Inpatient post-anesthesia follow up: Airway intact: Yes Vital signs: Temperature 97.9 F Pulse Rate 76 Respiratory Rate 14 Blood Pressure 114/80 Pulse Oximetry 96 Oxygen Delivery Me thod Room Air Oxygen Flow Rate 6 Fraction of Inspir ed Oxygen Hydration adequate: Yes Nausea and vomiting: No Pain level: 1 Mental status: Baseline
== END 2022-03-03 11:25 | disposition home or self-care (01) ==
PROVIDERS: PCP Family Medicine; Visit Provider Surgery
PROC: 0FT44ZZ Resection of Gallbladder, Percutaneous Endoscopic Approach (ICD-10-PCS; CPT 47562; principal; 2022-03-03 08:10)
DX: K80.10 Calculus of gallbladder with chronic cholecystitis without obstruction (principal); F41.9 Anxiety disorder, unspecified; K21.9 Gastro-esophageal reflux disease without esophagitis
CPT/HCPCS: 47562; 80076; 88304; J0330; J1100; J2250; J2405; J2704; J2710; J3010; J3490; J7030

== ENCOUNTER → 2023-11-07 14:24 | Outpatient (BNVA) | payer OTHER, SELFPAY | PROVIDERS: PCP Family Medicine; Visit Provider Podiatrist Foot & Ankle Surgery | DX: M79.671 Pain in right foot (principal); M79.672 Pain in left foot; S93.622A Sprain of tarsometatarsal ligament of left foot, initial encounter; X50.1XXA Overexertion from prolonged static or awkward postures, initial encounter | CPT/HCPCS: 73630 ==

== ENCOUNTER 2023-11-07 15:14 | Outpatient (CLI) | payer OTHER, SELFPAY | END 2023-11-07 15:15 | disposition home or self-care (01) | LOC: SPT 15:14 | PROVIDERS: PCP Family Medicine; Visit Provider Podiatrist Foot & Ankle Surgery | DX: Z46.89 Encounter for fitting and adjustment of other specified devices (principal); M79.672 Pain in left foot | CPT/HCPCS: 97760; L4361 ==

== ENCOUNTER 2023-12-19 14:32 | Outpatient (CLI) | payer OTHER, SELFPAY ==
--- NOTE | 2023-12-19 14:30 | MR_ITS ---
WS: [id number] MRI LEFT FOOT WITHOUT CONTRAST. COMPARISON: Radiographs 11/07/2023 Multiplanar, multisequence imaging is performed without contrast. Advanced degenerative changes at the first metatarsophalangeal joint. There is synovial thickening an d fluid surrounding the first metatarsal head with narrowing of the joint space. There is a small ext ra-articular erosion in the medial metatarsal head. No fracture. There is increased T2 signal in the fourth metatarsal extending greater than 50% the length of the me tatarsal. The Lisfranc ligament is very difficult to visualize in its entirety on this exam. There do es not appear to be a significant injury and there is no displacement of the Lisfranc articulation. H ammertoe deformities. There is a very small amount of marrow edema in the the proximal second metatar sagrario. IMPRESSION: 1. No secondary findings of injury to the Lisfranc ligament. 2. Marrow edema throughout the fourth metatarsal. This pattern is most likely seen with stress injury . 3. Advanced degenerative changes at the first metatarsophalangeal joint. There is synovitis and narro wing of the joint space. Consider osteoarthritis and gout.
== END 2023-12-19 14:33 | disposition home or self-care (01) ==
LOC: RAD 14:33
PROVIDERS: PCP Family Medicine; Visit Provider Podiatrist Foot & Ankle Surgery
DX: S93.622A Sprain of tarsometatarsal ligament of left foot, initial encounter (principal); X58.XXXA Exposure to other specified factors, initial encounter; M19.072 Primary osteoarthritis, left ankle and foot
CPT/HCPCS: 73718